=== PATIENT | male | born 1950 ===

== ENCOUNTER 2023-05-28 05:45 | Day surgery (SDC) | payer OTHER ==
[2023-05-22 09:15] LABS: HEMATOCRIT 38.7 % (39.0-48.0); MEAN CELL VOLUME 87.9 fL (80.0-100.00); MEAN CORPUSCULAR HEMOGLOBIN 29.6 pg (27.00-32.0); MEAN CORPUSCULAR HGB CONC 33.7 g/dl (32.0-36.0); PLATELET COUNT 192 K/uL (150-450); RED CELL DISTRIBUTION WIDTH 13.7 % (11.5-14.5)
[2023-05-22 09:17] LABS: URINE APPEARANCE Clear; URINE BILIRRUBIN Negative (NEGATIVE); URINE BLOOD Trace; URINE COLOR Yellow; URINE GLUCOSE Negative (NEGATIVE); URINE LEUKOCYTE Small; URINE NITRATE Negative; URINE PROTEIN Negative (NEGATIVE); URINE UROBILINOGEN 0.2 E.U./dl
[2023-05-22 09:21] LABS: URINE EPITHELIAL CELLS 3.7 uL (0.0-38.8); URINE RBC 6.8 uL (0.0-20.8); URINE WBC 35.5 uL (0.0-23.2)
[2023-05-22 09:47] LABS: PARTIAL THROMBOPLASTIN TIME 27.2 SECONDS (22.0-34.0); PROTHROMBIN TIME 10.5 SECONDS (9.0-11.5)
[2023-05-22 09:54] LABS: ALBUMIN 3.8 gm/dL (3.4-5.0); BILIRUBIN TOTAL 0.43 mg/dL (0.3-1.2); CALCIUM 9.9 mg/dL (8.5-10.1); CREATININE SERUM 1.06 mg/dL (0.70-1.30); GFR 69.07; GLOBULINA 3.8 G/DL (2.4-3.5); POTASSIUM 5.16 mEq/L (3.5-5.1); TOTAL PROTEIN 7.6 gm/dL (6.4-8.2)
[~2023-05-28] VITALS: Ht 157.5 cm; Wt 67.6 kg
[~2023-05-28 05:45] MED LIST: ACID CONTROLLER20 MG PO; ADULT LOW DOSE81 M1 PO; ENALAPRIL MALE2.5 MG PO; GLUMETZA500 MG PO; LEVOTHYROXINE25 MCG PO; PLAVIX75 MG PO; TOPROL XL25 M1 PO; [UNRECOGNIZED DRUG - OTHER] PO
[2023-05-28] MEDS ORDERED: PERCOCET 5-3251 EACH PO (15:24)
[2023-05-28] MEDS ORDERED: POLY119PG PO (15:24)
[2023-05-28] MEDS ORDERED: NEURONTIN300 MG PO (15:24)
== END 2023-05-28 22:30 | disposition home or self-care (01) ==
LOC: CIR.AMB 05:45
PROVIDERS: ATTEND Surgery
DX: K40.90 Unilateral inguinal hernia, without obstruction or gangrene, not specified as recurrent (principal); Z20.822 Contact with and (suspected) exposure to COVID-19; Z91.041 Radiographic dye allergy status; Z91.013 Allergy to seafood; I10 Essential (primary) hypertension
CPT/HCPCS: 49525; C1781